=== PATIENT | female | born 1940 ===

== ENCOUNTER 2016-10-13 08:52 | Inpatient (IN) | payer MEDICARE, MEDICAID ==
[2016-10-13 08:58] VITALS: BMI 38.0
[2016-10-13] MEDS ORDERED: Iohexol 240 (50 ml) PO ONE (09:38)
--- NOTE | 2016-10-13 09:44 | ED PDOC ---
HPI: Abdomen Time Seen by Provider: 10/13/16 09:00 Chief Complaint (Nursing): Abdominal Pain Chief Complaint (Provider): Rectal bleeding History Per: Patient History/Exam Limitations: no limitations Onset/Duration Of Symptoms: Days (5) Outside of [place] travel?: No Current Symptoms Are (Timing): Still Present Location Of Pain/Discomfort: Other (lower abdominal pain) Quality Of Discomfort: "Pain" Associated Symptoms: denies: Fever, Vomiting Additional Complaint(s): The pt is a 76yo female, presents to ED for evaluation of bright red blood per rectum for the past 5 days. pt reports she has had similar instances in the past. States her pain has progressively worsened today, prompting her visit. Pt denies any fever, chills or vomiting. Offers no additional medical complaints. Past Medical History Reviewed: Historical Data, Nursing Documentation, Vital Signs Vital Signs: Last Vital Signs Temp 98.6 F 10/15/16 09:00 Pulse 72 10/15/16 08:36 Resp 20 10/15/16 08:36 BP 122/69 10/15/16 08:36 Pulse Ox 97 10/15/16 08:36 - Medical History PMH: Arthritis - Surgical History Surgical History: Cholecystectomy - Family History Family History: States: No Known Family Hx - Living Arrangements Living Arrangements: With Family - Social History Current smoker - smoking cessation education provided: No Alcohol: None Drugs: Denies - Home Medications Home Medications: Ambulatory Orders Medication Instructions Recorded Alendronate [Fosamax] 70 mg PO QWK 10/13/16 Atorvastatin [Lipitor] 10 mg PO HS 10/13/16 Dorzolamide 2%/Timolol 0.5% 1 drop RIGHTEYE BID 10/13/16 [Cosopt 2%-0.5% Opht] Levocetirizine Dihydrochloride 5 mg PO DAILY 10/13/16 [Xyzal] - Allergies Allergies/Adverse Reactions: Allergies Allergy/AdvReac Type Severity Reaction Status Date / Time No Known Allergies Allergy Verified 10/13/16 09:26 Review of Systems ROS Statement: Except As Marked, All Systems Reviewed And Found Negative Constitutional: Negative for: Fever, Chills Gastrointestinal: Positive for: Abdominal Pain, Hematochezia. Negative for: Nausea, Vomiting, Diarrhea Physical Exam - Reviewed Nursing Documentation Reviewed: Yes Vital Signs Reviewed: Yes - Physical Exam Appears: Positive for: Well, Non-toxic, No Acute Distress Head Exam: Positive for: ATRAUMATIC, NORMAL INSPECTION, NORMOCEPHALIC Skin: Positive for: Normal Color, Warm, DRY Eye Exam: Positive for: EOMI, Normal appearance, PERRL Neck: Positive for: Normal, Supple Cardiovascular/Chest: Positive for: Regular Rate, Rhythm Respiratory: Positive for: Normal Breath Sounds. Negative for: Respiratory Distress Gastrointestinal/Abdominal: Positive for: Soft. Negative for: Tenderness Rectal: Positive for: Other (bright red blood per rectum note, spotting on provided pad. no active bleeding) Neurologic/Psych: Positive for: Alert, Oriented - Laboratory Results Result Diagrams: 10/15/16 11:30 10/15/16 05:30 - ECG O2 Sat by Pulse Oximetry: 99 (RA) Pulse Ox Interpretation: Normal Medical Decision Making Medical Decision Making: Time: 927 Impression: Rectal bleeding Plan: -- CBC -- CMP -- CT AP -- Type and screen -- Reassess CT report as noted. ordered antibiotics for colitis pt to be admitted for GI workup pt accepted to Dr Sharif service Scribe Attestation: Documented by Sabrina Alberts acting as a scribe for Karen Griggs MD. Provider Attestation: All medical record entries made by the Scribe were at my direction and personally dictated by me. I have reviewed the chart and agree that the record accurately reflects my personal performance of the history, physical exam, medical decision making, and the department course for this patient. I have also personally directed, reviewed, and agree with the discharge instructions and disposition. ED OBSERVATION Date of observation admission: 10/13/16 Time of observation admission: 09:38 - Observation admission statement Patient is being placed in observation because:: Awaiting CT AP. - Progress Note Progress Note: 10/13/16 10:48 Hemoglobin levels stable. 10/13/16 15:15 CT AP impression: Colonic wall thickening at the level of the hepatic flexure ; correlate clinically for possibility of colitis (i.e. infectious, inflammatory, ischemic) . Focal narrowing at the distal transverse colon (coronal image 57) short segment approximately 1.2 cm; recommend correlation with colonoscopy when clinically feasible and if indicated in order to exclude possibility of neoplasm. Diverticulosis without CT evidence of acute diverticulitis. Case discussed with Dr. Sharif, pt to be admitted. Consult requested from Dr. Stephenson. Ordered protonix. Disposition - Clinical Impression Clinical Impression: Abdominal pain, Rectal bleeding - Patient ED Disposition Is Patient to be Admitted: Transfer of Care Counseled Patient/Family Regarding: Studies Performed, Diagnosis, Need For Followup - Disposition Disposition: Transfer of Care Disposition Time: 15:00 Condition: STABLE Patient Signed Over To: Bipin [place] Handoff Comments: Pending CT AP results, final dispo.
[2016-10-13] MEDS ORDERED: Iohexol 240 (50 ml) ONE (09:57)
[2016-10-13 10:08] LABS: BASO # 0.1 K/uL (0.0-0.2); BASO % 1.2 % (0.0-2.0); EOS # 0.2 K/uL (0.0-0.7); EOS % 3.1 % (0.0-4.0); HEMOGLOBIN 11.5 g/dL (12.0-16.0); LYMPH % 31.4 % (20.0-40.0); MEAN CELL VOLUME 86.5 fl (81.0-99.0); MEAN CORPUSCULAR HEMOGLOBIN 28.4 pg (27.0-31.0); MEAN CORPUSCULAR HGB CONC 32.8 g/dL (33.0-37.0); MEAN PLATELET VOLUME 8.6 fl (7.2-11.7); MONO # 0.7 K/uL (0.0-0.8); MONO % 11.1 % (0.0-10.0); NEUT # 3.3 K/uL (1.8-7.0); NEUT % 53.2 % (50.0-75.0); RBC 4.06 Mil/uL (3.80-5.20); RED CELL DISTRIBUTION WIDTH 13.2 % (11.5-14.5); WHITE BLOOD COUNT 6.3 K/uL (4.8-10.8)
[2016-10-13 10:34] LABS: ALB/GLOB RATIO 1.4 (1.0-2.1); ALBUMIN 4.2 g/dL (3.5-5.0); ALT/SGPT 35 U/L (9-52); AST/SGOT 32 U/L (14-36); BLOOD UREA NITROGEN 15 mg/dl (7-17); CALCIUM 9.6 mg/dL (8.4-10.2); GFR AFRICAN-AMERICAN > 60; GFR NON-AFRICAN AMERICAN > 60
[2016-10-13] MEDS ORDERED: Iohexol 300 100 ML IJ ONE (13:53)
[2016-10-13] MEDS ORDERED: Sodium Chloride 0.9% 50 ML IV ONE (13:54)
--- NOTE | 2016-10-13 15:01 | CT ---
PROCEDURE: CT Abdomen and Pelvis with oral and IV contrast. HISTORY: rectal bleeding COMPARISON: Limited available views from CT of the abdomen and pelvis performed 02/24/10 TECHNIQUE: Contiguous axial images of the abdomen and pelvis. Oral and IV contrast was administered. Coronal and Sagittal reformats generated and reviewed. Contrast dose: 96 cc Omnipaque Radiation dose: Total exam DLP = 966.67 mGy-cm. This CT exam was performed using one or more of the following dose reduction techniques: Automated exposure control, adjustment of the mA and/or kV according to patient size, and/or use of iterative reconstruction technique. FINDINGS: LOWER THORAX: No visible consolidation, pleural effusion, or pneumothorax. Several scattered bilateral calcified granulomas measuring up to 7 mm at the right lung base. Small hiatal hernia. LIVER: Hypoattenuation of the liver compatible with hepatic steatosis. GALLBLADDER AND BILE DUCTS: Unremarkable. PANCREAS: Unremarkable. SPLEEN: 6 mm probable splenule. ADRENALS: Unremarkable. KIDNEYS AND URETERS: The kidneys enhance symmetrically. No hydronephrosis or obstructing renal calculus. Bilateral too small to characterize renal hypodensities; statistically likely cysts. BLADDER: Under distention of the urinary bladder limits evaluation. REPRODUCTIVE: Uterus is absent, presumably due to hysterectomy. APPENDIX: Not visualized. No secondary signs of acute appendicitis. BOWEL: The stomach is nondistended. No evidence of bowel obstruction. Diverticulosis without CT evidence of acute diverticulitis. Colonic wall thickening at the level of the hepatic flexure ; correlate clinically for possibility of colitis (i.e. infectious, inflammatory, ischemic). Focal narrowing at the distal transverse colon (coronal image 57) short segment approximately 1.2 cm; recommend correlation with colonoscopy when clinically feasible and if indicated in order to exclude possibility of neoplasm. PERITONEUM: No significant free fluid. No definite free air. LYMPH NODES: No bulky lymphadenopathy identified. VASCULATURE: No aortic aneurysm. BONES: Degenerative changes. OTHER FINDINGS: None. IMPRESSION: Colonic wall thickening at the level of the hepatic flexure ; correlate clinically for possibility of colitis (i.e. infectious, inflammatory, ischemic). Focal narrowing at the distal transverse colon (coronal image 57) short segment approximately 1.2 cm; recommend correlation with colonoscopy when clinically feasible and if indicated in order to exclude possibility of neoplasm. Diverticulosis without CT evidence of acute diverticulitis. Additional findings as above.
[2016-10-13] MEDS ORDERED: Ciprofloxacin 400mg/200ml D5W 400 MG/200 ML BAG IVPB STA (15:19)
[2016-10-13] MEDS ORDERED: metroNIDAZOLE 500mg/100ml NS 100 ML IVPB ONE ×2 (15:30→15:40)
[2016-10-13] MEDS ORDERED: Ciprofloxacin 400mg/200ml D5W 400 MG/200 ML BAG IVPB ONE (15:40)
[2016-10-13] MEDS ORDERED: Atrop/Hyos/Scop/PhenoB Elixir PO PRN (18:15)
[2016-10-13] MEDS ORDERED: Peg-Electrolyte Oral Soln 4L (Golytely) PO ONE (18:19)
[2016-10-13] MEDS: Dextrose 5%/0.9% NS 1,000 ML IV SCH (20:25)
[2016-10-13] MEDS ORDERED: Pneumococcal 23-Valent Vaccine IM ONE (21:00)
--- NOTE | 2016-10-13 22:42 | CP.PCM.CON ---
History of Present Illness - History of Present Illness History of Present Illness: 76 yo female comingto ER after experiencing rectal bleeding for 5 days. Associated with moderate abdominal pain. Past h/o cholecystectomy Review of Systems - Constitutional Constitutional: absent: Chills - EENT Eyes: absent: Blurred Vision Ears: absent: Decreased Hearing Nose/Mouth/Throat: absent: Epistaxis - Breasts Breasts: absent: Change in Shape - Cardiovascular Cardiovascular: absent: Chest Pain - Respiratory Respiratory: absent: Cough - Gastrointestinal Gastrointestinal: As Per HPI - Genitourinary Genitourinary: absent: Difficulty Urinating Past Patient History - Past Social History Smoking Status: Never Smoked - MUSCULOSKELETAL/RHEUMATOLOGICAL Hx Arthritis: Yes Hx Falls: No - PSYCHIATRIC Hx Substance Use: No - SURGICAL HISTORY Hx Cholecystectomy: Yes Meds Allergies/Adverse Reactions: Allergies Allergy/AdvReac Type Severity Reaction Status Date / Time No Known Allergies Allergy Verified 10/13/16 09:26 - Medications Medications: Current Medications Belladonna/Phenobarbital () 10 ml PO TID PRN PRN Reason: Pain, moderate (4-7) Dextrose/Sodium Chloride (Dextrose 5%/0.9% Ns 1000 Ml) 1,000 mls @ 80 mls/hr IV .[id number] CHRISS Stop: 10/14/16 19:01 Last Admin: 10/13/16 20:25 Dose: 80 mls/hr Physical Exam - Constitutional Appears: No Acute Distress - Head Exam Head Exam: ATRAUMATIC - Eye Exam Eye Exam: Normal appearance - ENT Exam ENT Exam: Mucous Membranes Moist - Respiratory Exam Respiratory Exam: Clear to Auscultation Bilateral - Cardiovascular Exam Cardiovascular Exam: REGULAR RHYTHM, +S1, +S2 - GI/Abdominal Exam GI & Abdominal Exam: Normal Bowel Sounds, Soft. absent: Tenderness Results - Vital Signs Recent Vital Signs: Last Vital Signs Temp 98.3 F 10/13/16 18:02 Pulse 72 10/13/16 18:02 Resp 20 10/13/16 18:02 BP 127/73 10/13/16 18:02 Pulse Ox 96 10/13/16 18:02 - Labs Result Diagrams: 10/13/16 10:02 10/13/16 10:02 - Imaging and Cardiology CT scan - abdomen Status: Report reviewed by me Assessment & Plan (1) GI bleed Assessment and Plan: Has rectal bleeding associated with CT demonstrating thickening of descending colon and possible stricture of transverse colon. Colonoscopy Monday AM to rule out stricture and colitis.. for abdominal pain. Status: Acute
[2016-10-14 06:37] LABS: HEMOGLOBIN 11.5 g/dL (12.0-16.0); MEAN CELL VOLUME 85.8 fl (81.0-99.0); MEAN CORPUSCULAR HEMOGLOBIN 29.2 pg (27.0-31.0); RBC 3.94 Mil/uL (3.80-5.20); RED CELL DISTRIBUTION WIDTH 13.1 % (11.5-14.5); WHITE BLOOD COUNT 6.3 K/uL (4.8-10.8)
[2016-10-14 06:43] LABS: BLOOD UREA NITROGEN 11 mg/dl (7-17); CALCIUM 8.8 mg/dL (8.4-10.2); GFR AFRICAN-AMERICAN > 60; GFR NON-AFRICAN AMERICAN > 60
[2016-10-14] MEDS ORDERED: Propofol 10 mg/ml Inj (20 ML) ONE (08:04)
[2016-10-14] MEDS ORDERED: Midazolam 2 MG/2 ML VIAL ONE (08:04)
[2016-10-14] MEDS ORDERED: Lactated Ringer's 500 ML IV ONE (08:22)
[2016-10-14] MEDS ORDERED: Etomidate 20 mg/10ml Inj IV ONE (08:36)
--- NOTE | 2016-10-14 10:59 | CP.PCM.HP ---
History of Present Illness - History of Present Illness History of Present Illness: This is a 76 y/o female with no significant medical hx had rectal bleed for 5 days. Claims that she was brought to Er due to worsening of symptoms. She also has right upper quadrant pain. Had cholecystectomy few years back,Ct scan showed thickened descending colon. Has no other significant medical hx. She had colonoscopy today which showed bleeding ext hemorrhoids , intermnal hemorrhoids and diverticulosis sigmoid. Present on Admission - Present on Admission Any Indicators Present on Admission: No History of DVT/PE: No History of Uncontrolled Diabetes: No Urinary Catheter: No Decubitus Ulcer Present: No Past Patient History - Past Social History Smoking Status: Never Smoked - MUSCULOSKELETAL/RHEUMATOLOGICAL Hx Arthritis: Yes Hx Falls: No - PSYCHIATRIC Hx Substance Use: No - SURGICAL HISTORY Hx Cholecystectomy: Yes Meds Allergies/Adverse Reactions: Allergies Allergy/AdvReac Type Severity Reaction Status Date / Time No Known Allergies Allergy Verified 10/13/16 09:26 Physical Exam - Head Exam Head Exam: NORMAL INSPECTION - Eye Exam Eye Exam: Normal appearance - ENT Exam ENT Exam: Mucous Membranes Moist - Respiratory Exam Respiratory Exam: Clear to Auscultation Bilateral - Cardiovascular Exam Cardiovascular Exam: REGULAR RHYTHM - GI/Abdominal Exam GI & Abdominal Exam: Normal Bowel Sounds - Neurological Exam Neurological exam: CN II-XII Intact - Psychiatric Exam Psychiatric exam: Normal Mood Results - Vital Signs Recent Vital Signs: Last Vital Signs Temp 98 F 10/14/16 09:16 Pulse 87 10/14/16 09:16 Resp 15 10/14/16 09:16 BP 127/71 10/14/16 09:16 Pulse Ox 100 10/14/16 09:16 - Labs Result Diagrams: 10/14/16 05:20 10/14/16 05:20 Labs: Laboratory Results - last 24 hr 10/14/16 10/14/16 05:20 05:20 WBC 6.3 RBC 3.94 Hgb 11.5 L Hct 33.8 L MCV 85.8 MCH 29.2 MCHC 34.0 RDW 13.1 Plt Count 358 Sodium 141 Potassium 3.5 L Chloride 105 Carbon Dioxide 23 Anion Gap 17 BUN 11 Creatinine 0.9 Est GFR ( Amer) > 60 Est GFR (Non-Af Amer) > 60 Random Glucose 117 H Calcium 8.8 Assessment & Plan (1) Rectal bleed Status: Acute (2) External hemorrhoid, bleeding Status: Acute (3) Internal hemorrhoid Status: Acute (4) Diverticulosis Status: Acute - Assessment and Plan (Free Text) Plan: cont meds anusol No aspirin anusol a cream and supp protonix daily folow up in 2 weeks
[2016-10-14] MEDS: Hydrocortisone 2.5% (Rectal) CREAM PR SCH ×2 (11:07→17:11)
[2016-10-14] MEDS ORDERED: Potassium Chloride 20 mEq ER Tab PO ONE (11:08)
[2016-10-14] MEDS: Pantoprazole 40 mg EC Tab PO SCH (12:42)
[2016-10-14] MEDS: Dextrose 5%/0.9% NS 1,000 ML IV SCH (23:09)
[2016-10-15 07:29] LABS: HEMOGLOBIN 8.9 g/dL (12.0-16.0); MEAN CELL VOLUME 86.8 fl (81.0-99.0); MEAN CORPUSCULAR HEMOGLOBIN 28.8 pg (27.0-31.0); MEAN CORPUSCULAR HGB CONC 33.1 g/dL (33.0-37.0); RBC 3.11 Mil/uL (3.80-5.20); WHITE BLOOD COUNT 5.4 K/uL (4.8-10.8)
[2016-10-15 07:44] LABS: BLOOD UREA NITROGEN 12 mg/dl (7-17); CALCIUM 7.9 mg/dL (8.4-10.2); GFR AFRICAN-AMERICAN > 60; GFR NON-AFRICAN AMERICAN > 60
[2016-10-15] MEDS ORDERED: Hydrocortisone 2.5% (Rectal) CREAM ONE (09:00)
[2016-10-15] MEDS: Pantoprazole 40 mg EC Tab PO SCH (09:33)
[2016-10-15] MEDS: Hydrocortisone 2.5% (Rectal) CREAM PR SCH (09:33)
[2016-10-15 11:55] LABS: MEAN CELL VOLUME 85.8 fl (81.0-99.0); MEAN CORPUSCULAR HEMOGLOBIN 29.1 pg (27.0-31.0); MEAN CORPUSCULAR HGB CONC 33.9 g/dL (33.0-37.0); RBC 3.08 Mil/uL (3.80-5.20); RED CELL DISTRIBUTION WIDTH 13.3 % (11.5-14.5); WHITE BLOOD COUNT 5.7 K/uL (4.8-10.8)
[2016-10-16 08:50] LABS: HEMOGLOBIN 9.4 g/dL (12.0-16.0); MEAN CELL VOLUME 86.6 fl (81.0-99.0); MEAN CORPUSCULAR HEMOGLOBIN 29.5 pg (27.0-31.0); MEAN CORPUSCULAR HGB CONC 34.1 g/dL (33.0-37.0); RBC 3.18 Mil/uL (3.80-5.20); RED CELL DISTRIBUTION WIDTH 12.8 % (11.5-14.5); WHITE BLOOD COUNT 5.8 K/uL (4.8-10.8)
[2016-10-16 08:55] LABS: BLOOD UREA NITROGEN 13 mg/dl (7-17); GFR AFRICAN-AMERICAN > 60; GFR NON-AFRICAN AMERICAN > 60
[2016-10-16] MEDS: Pantoprazole 40 mg EC Tab PO SCH (09:00)
[2016-10-16] MEDS: Hydrocortisone 2.5% (Rectal) CREAM PR SCH ×2 (09:00→16:48)
[2016-10-16 09:56] LABS: BLOOD UREA NITROGEN 12 mg/dl (7-17); GFR AFRICAN-AMERICAN > 60; GFR NON-AFRICAN AMERICAN > 60
[2016-10-16 09:57] LABS: CALCIUM 7.9 mg/dL (8.4-10.2)
[2016-10-16] MEDS ORDERED: ALENDRONATE 70 MG TAB PO SCH (10:30)
[2016-10-16 21:50] LABS: HEMOGLOBIN 8.9 g/dL (12.0-16.0); MEAN CELL VOLUME 86.5 fl (81.0-99.0); MEAN CORPUSCULAR HEMOGLOBIN 28.4 pg (27.0-31.0); MEAN CORPUSCULAR HGB CONC 32.8 g/dL (33.0-37.0); RBC 3.12 Mil/uL (3.80-5.20); WHITE BLOOD COUNT 5.2 K/uL (4.8-10.8)
[2016-10-16 21:51] LABS: BASO % 0.4 % (0.0-2.0); EOS # 0.3 K/uL (0.0-0.7); LYMPH # 1.5 K/uL (1.0-4.3); LYMPH % 29.3 % (20.0-40.0); MEAN PLATELET VOLUME 8.9 fl (7.2-11.7); MONO # 0.7 K/uL (0.0-0.8); MONO % 12.8 % (0.0-10.0); NEUT # 2.7 K/uL (1.8-7.0); NEUT % 52.5 % (50.0-75.0); NRBC % 0.1 % (0.0-0.0)
[2016-10-17 06:27] LABS: HEMOGLOBIN 10.7 g/dL (12.0-16.0); MEAN CELL VOLUME 86.7 fl (81.0-99.0); MEAN CORPUSCULAR HEMOGLOBIN 29.2 pg (27.0-31.0); MEAN CORPUSCULAR HGB CONC 33.6 g/dL (33.0-37.0); RBC 3.68 Mil/uL (3.80-5.20); RED CELL DISTRIBUTION WIDTH 13.2 % (11.5-14.5); WHITE BLOOD COUNT 9.2 K/uL (4.8-10.8)
[2016-10-17 06:40] LABS: ALB/GLOB RATIO 1.6 (1.0-2.1); ALBUMIN 4.5 g/dL (3.5-5.0); ALT/SGPT 35 U/L (9-52); AST/SGOT 28 U/L (14-36); BLOOD UREA NITROGEN 15 mg/dl (7-17); CALCIUM 8.3 mg/dL (8.4-10.2); GFR AFRICAN-AMERICAN > 60; GFR NON-AFRICAN AMERICAN > 60
--- NOTE | 2016-10-17 07:31 | PQF GENQUE ---
This form is a permanent part of the medical record 10/17/16 Dr. Sharif, Please provide the underlying diagnosis causing the patient's documented symptom of rectal bleeding under the physician response section. Admitted with rectal bleeding and RUQ pain. CT showed thickened descending colon. Colonoscopy showed bleeding external hemorrhoids, internal hemorrhoids and diverticulosis of the sigmoid colon. Clarification of your documentation is requested to better reflect the severity of illness and intensity of treatment of your patient. Indicators present [] Specify: [] [] Specify: [] [] Specify: [] [] Specify: [] Location in the medical record that reflects the above clinical findings: [] Treatment Provided: [] PHYSICIAN'S RESPONSE: Rectal bleeding due to Based on your medical judgment of the clinical indicators outlined above please clarify the following: [] Practitioner response [] If unable to determine, please check the box, sign and date. Present On Admission (POA) Indicator: [] Present at the time of admission [] Not present at the time of admission [] Clinically Undetermined In responding to this query, please exercise your independent professional judgment. The fact that a question is asked does not imply that any particular answer is desired or expected. Thank you for your clarification on this documentation. If you have any questions please call:ext [phone] * Thank you, Tracy Esparza RN [facility]
[2016-10-17] MEDS: Pantoprazole 40 mg EC Tab PO SCH (09:14)
[2016-10-17] MEDS: Hydrocortisone 2.5% (Rectal) CREAM PR SCH (09:14)
--- NOTE | 2016-10-17 13:36 | CP.PCM.PN ---
Subjective - Date & Time of Evaluation Date of Evaluation: 10/15/16 - Subjective Subjective: Patient was noted to have persistently low Hgb Has n other episode of rectal bleed, She was made aware of the bleeding hemorrhoids as the source of bleeding. Objective - Vital Signs/Intake and Output Vital Signs (last 24 hours): Temp Pulse Resp BP Pulse Ox 98.5 F 92 H 19 121/76 95 10/17/16 08:10 10/17/16 08:10 10/17/16 08:10 10/17/16 08:10 10/17/16 08:10 - Medications Medications: Current Medications Alendronate Sodium (Fosamax) 70 mg PO QWK [facility] Atorvastatin Calcium (Lipitor) 10 mg PO DAILY [facility] Last Admin: 10/17/16 09:14 Dose: 10 mg Belladonna/Phenobarbital () 10 ml PO TID PRN PRN Reason: Pain, moderate (4-7) Last Admin: 10/16/16 17:31 Dose: 10 ml Ferrous Sulfate (Feosol) 325 mg PO TID [facility] Last Admin: 10/17/16 13:06 Dose: 325 mg Hydrocortisone (Anusol-Hc) 1 applic [place] BID [facility] Last Admin: 10/17/16 09:14 Dose: 1 applic Pantoprazole Sodium (Protonix Ec Tab) 40 mg PO DAILY [facility] Last Admin: 10/17/16 09:14 Dose: 40 mg Zolpidem Tartrate (Ambien) 5 mg PO HS [facility] Last Admin: 10/16/16 22:51 Dose: 5 mg - Labs Labs: 10/17/16 05:30 10/17/16 05:30 Assessment and Plan (1) Rectal bleed Status: Acute (2) External hemorrhoid, bleeding Status: Acute (3) Internal hemorrhoid Status: Acute (4) Diverticulosis Status: Acute
--- NOTE | 2016-10-17 13:37 | CP.PCM.PN ---
Subjective - Date & Time of Evaluation Date of Evaluation: 10/16/16 Time of Evaluation: 10:00 - Subjective Subjective: Patient remains well. Has no chest pain or SOB Afebrile. HGB went up to 9.4 Objective - Vital Signs/Intake and Output Vital Signs (last 24 hours): Temp Pulse Resp BP Pulse Ox 98.5 F 92 H 19 121/76 95 10/17/16 08:10 10/17/16 08:10 10/17/16 08:10 10/17/16 08:10 10/17/16 08:10 - Medications Medications: Current Medications Alendronate Sodium (Fosamax) 70 mg PO QWK [facility] Atorvastatin Calcium (Lipitor) 10 mg PO DAILY [facility] Last Admin: 10/17/16 09:14 Dose: 10 mg Belladonna/Phenobarbital () 10 ml PO TID PRN PRN Reason: Pain, moderate (4-7) Last Admin: 10/16/16 17:31 Dose: 10 ml Ferrous Sulfate (Feosol) 325 mg PO TID [facility] Last Admin: 10/17/16 13:06 Dose: 325 mg Hydrocortisone (Anusol-Hc) 1 applic [place] BID [facility] Last Admin: 10/17/16 09:14 Dose: 1 applic Pantoprazole Sodium (Protonix Ec Tab) 40 mg PO DAILY [facility] Last Admin: 10/17/16 09:14 Dose: 40 mg Zolpidem Tartrate (Ambien) 5 mg PO HS [facility] Last Admin: 10/16/16 22:51 Dose: 5 mg - Labs Labs: 10/17/16 05:30 10/17/16 05:30 Assessment and Plan (1) Rectal bleed Status: Acute (2) External hemorrhoid, bleeding Status: Acute (3) Internal hemorrhoid Status: Acute (4) Diverticulosis Status: Acute
--- NOTE | 2016-10-17 13:38 | CP.PCM.DIS ---
Provider - Provider Date of Admission: 10/13/16 15:10 Attending physician: Calvin Sharif MD Diagnosis - Discharge Diagnosis (1) Rectal bleed Status: Acute (2) External hemorrhoid, bleeding Status: Acute (3) Internal hemorrhoid Status: Acute (4) Diverticulosis Status: Acute Hospital Course - Lab Results Lab Results: Most Recent Lab Values WBC 9.2 K/uL (4.8-10.8) D 10/17/16 05:30 RBC 3.68 Mil/uL (3.80-5.20) L 10/17/16 05:30 Hgb 10.7 g/dL (12.0-16.0) L 10/17/16 05:30 Hct 31.9 % (34.0-47.0) L 10/17/16 05:30 MCV 86.7 fl (81.0-99.0) 10/17/16 05:30 MCH 29.2 pg (27.0-31.0) 10/17/16 05:30 MCHC 33.6 g/dL (33.0-37.0) 10/17/16 05:30 RDW 13.2 % (11.5-14.5) 10/17/16 05:30 Plt Count 361 K/uL (130-400) 10/17/16 05:30 MPV 8.9 fl (7.2-11.7) 10/15/16 15:00 Neut % (Auto) 52.5 % (50.0-75.0) 10/15/16 15:00 Lymph % (Auto) 29.3 % (20.0-40.0) 10/15/16 15:00 [place] % (Auto) 12.8 % (0.0-10.0) H 10/15/16 15:00 Eos % (Auto) 5.0 % (0.0-4.0) H 10/15/16 15:00 Baso % (Auto) 0.4 % (0.0-2.0) 10/15/16 15:00 Neut # 2.7 K/uL (1.8-7.0) 10/15/16 15:00 Lymph # 1.5 K/uL (1.0-4.3) 10/15/16 15:00 [place] # 0.7 K/uL (0.0-0.8) 10/15/16 15:00 Eos # 0.3 K/uL (0.0-0.7) 10/15/16 15:00 Baso # 0.0 K/uL (0.0-0.2) 10/15/16 15:00 Sodium 141 mmol/l (132-148) 10/17/16 05:30 Potassium 4.0 MMOL/L (3.6-5.0) 10/17/16 05:30 Chloride 107 mmol/L (98-107) 10/17/16 05:30 Carbon Dioxide 22 mmol/L (22-30) 10/17/16 05:30 Anion Gap 17 (10-20) 10/17/16 05:30 BUN 15 mg/dl (7-17) 10/17/16 05:30 Creatinine 0.9 mg/dL (0.7-1.2) 10/17/16 05:30 Est GFR ( Amer) > 60 10/17/16 05:30 Est GFR (Non-Af Amer) > 60 10/17/16 05:30 Random Glucose 97 mg/dL (65-105) 10/17/16 05:30 Calcium 8.3 mg/dL (8.4-10.2) L 10/17/16 05:30 Total Bilirubin 0.4 mg/dl (0.2-1.3) 10/17/16 05:30 AST 28 U/L (14-36) 10/17/16 05:30 ALT 35 U/L (9-52) 10/17/16 05:30 Alkaline Phosphatase 59 U/L (38-126) 10/17/16 05:30 Total Protein 7.3 G/DL (6.3-8.2) 10/17/16 05:30 Albumin 4.5 g/dL (3.5-5.0) 10/17/16 05:30 Globulin 2.9 gm/dL (2.2-3.9) 10/17/16 05:30 Albumin/Globulin Ratio 1.6 (1.0-2.1) 10/17/16 05:30 Blood Type O POSITIVE 10/13/16 10:02 Blood Type Confirm O POSITIVE 10/13/16 10:23 Antibody Screen Negative 10/13/16 10:02 BBK History Checked No verified bt 10/13/16 10:02 - Hospital Course Hospital Course: This is a 76 y/o female admitted for rectal bleed. Discharge Exam - Head Exam Head Exam: ATRAUMATIC, NORMAL INSPECTION, NORMOCEPHALIC Discharge Plan - Follow Up Plan Condition: STABLE Disposition: HOME/ ROUTINE
--- NOTE | 2016-10-17 13:43 | US ---
HISTORY: Abdominal pain. COMPARISON: Correlation made with CT scan abdomen pelvis 10/13/2016. TECHNIQUE: Sonographic evaluation of the abdomen. FINDINGS: LIVER: Measures approximately 16.3 cm. Liver demonstrates smooth contour however slight increased on echogenicity consistent with fatty infiltration. No obvious hepatic mass or collection. No significant intrahepatic biliary ductal dilatation GALLBLADDER: Gallbladder is not seen due to body habitus and bowel gas. COMMON BILE DUCT: Common bile duct measures approximately 4 mm. No obvious intraluminal common bile duct calculi. PANCREAS: Visualized portions of the pancreas appear grossly unremarkable. . No mass. No ductal dilatation. RIGHT KIDNEY: Measures 10.4 cm in greatest dimensioncm. Normal echogenicity. No calculus, mass, or hydronephrosis. LEFT KIDNEY: Measures approximately 9.6 cm in greatest dimensioncm. Normal echogenicity. No calculus, mass, or hydronephrosis. SPLEEN: Spleen measures approximately 9.6 cm in greatest dimension. No splenic mass collection or calcification. AORTA: No aneurysmal dilatation. IVC: Unremarkable. OTHER FINDINGS: None. IMPRESSION: Mild fatty hepatic infiltration. Gallbladder not visualized due to body habitus and bowel gas.
[2016-10-17 16:02] VITALS: BP 111/73; PULSE 71; RESP 20; TEMP 98.8; O2SAT 96
== END 2016-10-17 16:34 | disposition home or self-care (01) | DRG 394 ==
LOC: H.ER 08:52 → H.EROBSV 09:38 → OBSVTOIN 15:10 → H.ERHOLD 15:19 → H.MEDSURG1 17:30
PROVIDERS: ADMIT Family Medicine; ATTEND Family Medicine
PROC: 0DBH8ZX Excision of Cecum, Via Natural or Artificial Opening Endoscopic, Diagnostic (ICD-10-PCS; 2016-10-14)
PROC: 0DBL8ZX Excision of Transverse Colon, Via Natural or Artificial Opening Endoscopic, Diagnostic (ICD-10-PCS; principal; 2016-10-14 08:00)
DX: K64.4 Residual hemorrhoidal skin tags (principal); K62.5 Hemorrhage of anus and rectum; K64.8 Other hemorrhoids; K57.30 Diverticulosis of large intestine without perforation or abscess without bleeding; M19.90 Unspecified osteoarthritis, unspecified site; Z90.49 Acquired absence of other specified parts of digestive tract